=== PATIENT | female | born 1970 | race Two or more races ===

== ENCOUNTER 2017-10-23 15:14 | Inpatient (IN) | payer MEDICAID ==
[~2017-10-23] VITALS: Ht 170.2 cm; Wt 160.2 kg
[~2017-10-23 15:14] MED LIST: ASPI81CH43 PO; BENA20TA PO; CLOP75TA41 PO; FURO40TA4 PO; LISI-646 PO; MET25T PO; POT20T PO; SITA100T7 PO
[2017-10-23 16:54] LABS: Alanine Aminotransferase 27 U/L (13-56); Anion Gap 5 (5-15); Aspartate Aminotransferase 19 U/L (15-37); BUN/Creatinine Ratio 19.7; Blood Urea Nitrogen 13 mg/dL (7-18); Calcium 8.8 mg/dL (8.5-10.1); Carbon Dioxide 29 mmol/L (21-32); Chloride 107 mmol/L (98-107); GFR African American 123 mL/min; GFR Non-African American 102 mL/min; Glucose 140 mg/dL (74-106); Magnesium 2.2 mg/dL (1.6-2.6); Potassium 3.7 mmol/L (3.5-5.1); Sodium 141 mmol/L (136-145)
[2017-10-23 16:57] LABS: Basophils # (auto) 0 uL; Basophils % (auto) 0.3 % (0.0-2.0); Eosinophils # (auto) 0.1 uL; Hematocrit 41.9 % (36.0-46.0); Hemoglobin 13.7 g/dL (12.2-16.2); Lymphocytes # (auto) 1.7 uL; Lymphocytes % (auto) 27.7 % (10.0-50.0); Mean Corpuscular Hemoglobin 28.3 pg (28.0-32.0); Mean Corpuscular Hgb Conc. 32.6 g/dL (32.0-36.0); Mean Corpuscular Volume 86.8 fL (80.0-100.0); Monocytes # (auto) 0.5 uL; Monocytes % (auto) 7.4 % (0.0-12.0); Neutrophils # (auto) 3.9 uL; Neutrophils % (auto) 63.6 % (37.0-80.0); Nucleated Red Blood Cells % 0.1 %; Platelet Count (auto) 222 10^3/uL (140-450); Red Blood Cells 4.83 10^6/uL (4.0-5.20); Red Cell Distribution Width 16.6 % (11.8-14.3); White Blood Cell 6.2 10^3/uL (4.4-10.8)
[2017-10-23 16:59] LABS: Alkaline Phosphatase 82 U/L (45-117); Bilirubin, Total 0.3 mg/dL (0.2-1.0); Total Protein 7.5 g/dL (6.4-8.2)
[2017-10-23 22:12] LABS: Urine Bacteria NONE SEEN /hpf (None Seen); Urine Blood Negative /uL (Negative); Urine WBC 1 /hpf (0 - 5)
[2017-10-23] MEDS ORDERED: ONDANSETRON HCL 4 MG/2 ML VIAL IV ONE (23:45)
[2017-10-23] MEDS ORDERED: MORPHINE SULFATE 4 MG/ML SYR/VIAL IV ONE (23:45)
[2017-10-24] MEDS ORDERED: DEXTROSE (50%) 50ML SYRG IV PRN (02:45)
[2017-10-24] MEDS ORDERED: ONDANSETRON HCL 4 MG/2 ML VIAL IV PRN (02:45)
[2017-10-24] MEDS ORDERED: MORPHINE SULFATE 4 MG/ML SYR/VIAL IV PRN (02:45)
[2017-10-24] MEDS ORDERED: NITROGLYCERIN 0.4 MG SL TAB SL PRN (02:45)
[2017-10-24] MEDS ORDERED: TEMAZEPAM 15 MG CAP PO PRN (02:45)
[2017-10-24] MEDS: InsuLIN REG 1unit/0.01ml Soln (100units/ml) SC SCH ×4 (06:02→22:25)
[2017-10-24] MEDS: ACCU-CHEK COMFORT CURVE STRIP VI SCH ×4 (06:03→21:42)
[2017-10-24] MEDS ORDERED: ACETAMINOPHEN 325 MG TAB PO ONE (08:15)
[2017-10-24] MEDS ORDERED: LISINOPRIL 10 MG TAB PO SCH (10:00)
[2017-10-24] MEDS ORDERED: ENOXAPARIN SOD 40 MG/0.4 ML SYRINGE SC SCH (10:00)
[2017-10-24] MEDS ORDERED: BENAZEPRIL HCL 10 MG TAB PO SCH (10:00)
[2017-10-24] MEDS ORDERED: ASPirin 81 mg TAB PO SCH (10:00)
[2017-10-24] MEDS ORDERED: FUROSEMIDE 40 MG TAB PO SCH (10:00)
[2017-10-24 10:01] VITALS: BP 134/48
[2017-10-24] MEDS ORDERED: GLYB3TAB PO (10:16)
[2017-10-24] MEDS ORDERED: CANA300T OR (10:16)
[2017-10-24] MEDS ORDERED: SACU1TAB PO (10:16)
[2017-10-24] MEDS: CLOPIDOGREL BISULFATE 75 MG TAB PO SCH (10:36)
[2017-10-24] MEDS: METOPROLOL TARTRATE 25 MG TAB PO SCH ×2 (10:40→21:42)
[2017-10-24] MEDS ORDERED: OPTISON 3ml Vial for INJ IV ONE (11:16)
[2017-10-24 12:00] VITALS: BP 98/48
[2017-10-24] MEDS: HYDROcodone-ACET 5/325MG TAB PO PRN ×2 (12:15→20:00)
[2017-10-24] MEDS ORDERED: IOHEXOL 350 MG/ML 100ML IJ ONE (16:21)
[2017-10-24 16:53] LABS: Alcohol, Urine < 3.0 mg/dL (0-5); Amphetamine Screen, Urine NEGATIVE (NEGATIVE); Barbiturate Scree,Urine NEGATIVE (NEGATIVE); Benzodiazephine Screen, Urine NEGATIVE (NEGATIVE); Cannabinoid Screen, Urine NEGATIVE (NEGATIVE); Cocaine Screen, Urine NEGATIVE (NEGATIVE); Opiate Scree,Urine NEGATIVE (NEGATIVE); Phencyclidine Screen, Urine NEGATIVE (NEGATIVE)
[2017-10-24 17:00] VITALS: BP 106/59
[2017-10-24] MEDS: PANTOPRAZOLE 40 MG TAB PO SCH (21:39)
[2017-10-24 22:00] VITALS: BP 99/48
[2017-10-24] MEDS ORDERED: ATORVASTATIN 20 MG TAB PO SCH (22:00)
[2017-10-24] MEDS ORDERED: cefTRIAXone 1GM/10ml IVPUSH 10 ML IV ONE (22:00)
[2017-10-24] MEDS ORDERED: SODIUM CHLORIDE 0.9% 500 ML IV ONE (22:00)
[2017-10-24] MEDS: ACETAMINOPHEN 325 MG TAB PO PRN (22:26)
[2017-10-24 22:44] LABS: Basophils # (auto) 0 uL; Basophils % (auto) 0.2 % (0.0-2.0); Eosinophils # (auto) 0 uL; Hematocrit 39.4 % (36.0-46.0); Hemoglobin 12.7 g/dL (12.2-16.2); Lymphocytes # (auto) 0.7 uL; Lymphocytes % (auto) 8.5 % (10.0-50.0); Mean Corpuscular Hgb Conc. 32.4 g/dL (32.0-36.0); Mean Corpuscular Volume 86.5 fL (80.0-100.0); Monocytes # (auto) 0.7 uL; Monocytes % (auto) 7.5 % (0.0-12.0); Neutrophils # (auto) 7.4 uL; Neutrophils % (auto) 83.8 % (37.0-80.0); Platelet Count (auto) 194 10^3/uL (140-450); Red Blood Cells 4.55 10^6/uL (4.0-5.20); White Blood Cell 8.8 10^3/uL (4.4-10.8)
[2017-10-24 23:04] LABS: Albumin 3.6 g/dL (3.4-5.0); BUN/Creatinine Ratio 18.8; Calcium 8.5 mg/dL (8.5-10.1); Potassium 3.5 mmol/L (3.5-5.1)
[2017-10-24 23:06] LABS: Bilirubin, Total 1.2 mg/dL (0.2-1.0); Total Protein 7.1 g/dL (6.4-8.2)
[2017-10-25] VITALS (11 sets, daily range): BP systolic 90–133; BP diastolic 45–80
[2017-10-25] MEDS: InsuLIN REG 1unit/0.01ml Soln (100units/ml) SC SCH ×4 (05:31→23:31)
[2017-10-25] MEDS: ACETAMINOPHEN 325 MG TAB PO PRN ×2 (05:31→20:58)
[2017-10-25] MEDS: ACCU-CHEK COMFORT CURVE STRIP VI SCH ×3 (05:31→17:35)
[2017-10-25] MEDS ORDERED: SODIUM CHLORIDE 0.9% 1,000 ML IV SCH (07:15)
[2017-10-25] MEDS ORDERED: metroNIDAZOLE 500MG/100ML 100 ML IV ONE ×2 (07:15→07:23)
[2017-10-25] MEDS ORDERED: SODIUM CHLORIDE 0.9% 500 ML IV ONE (07:45)
[2017-10-25 07:53] LABS: Cholesterol 110 mg/dL (< 200); HDL Cholesterol 48 mg/dL (40-59); LDL Cholesterol 57 mg/dL (< 100); Triglycerides 86 mg/dL (< 150)
[2017-10-25] MEDS ORDERED: cefTRIAXone 1GM/10ml IVPUSH 10 ML IV SCH (09:00)
[2017-10-25] MEDS: PANTOPRAZOLE 40 MG TAB PO SCH (09:28)
[2017-10-25] MEDS: CLOPIDOGREL BISULFATE 75 MG TAB PO SCH (09:28)
[2017-10-25] MEDS ORDERED: ASPirin 81 mg TAB PO SCH (10:00)
[2017-10-25] MEDS ORDERED: VANCOMYCIN PER PHARMACY 0 MG IV SCH (10:45)
[2017-10-25 11:55] LABS: Basophils # (auto) 0 uL; Basophils % (auto) 0.2 % (0.0-2.0); Eosinophils # (auto) 0 uL; Hematocrit 39.2 % (36.0-46.0); Hemoglobin 12.7 g/dL (12.2-16.2); Lymphocytes # (auto) 0.9 uL; Lymphocytes % (auto) 8.5 % (10.0-50.0); Mean Corpuscular Hemoglobin 28.1 pg (28.0-32.0); Mean Corpuscular Hgb Conc. 32.5 g/dL (32.0-36.0); Mean Corpuscular Volume 86.5 fL (80.0-100.0); Monocytes # (auto) 0.9 uL; Monocytes % (auto) 7.8 % (0.0-12.0); Neutrophils # (auto) 9.2 uL; Neutrophils % (auto) 83.5 % (37.0-80.0); Platelet Count (auto) 186 10^3/uL (140-450); Red Blood Cells 4.53 10^6/uL (4.0-5.20); Red Cell Distribution Width 17.1 % (11.8-14.3)
[2017-10-25] MEDS ORDERED: PIPERACILLIN-TAZOB 3.375GM 50 ML IV SCH (12:00)
[2017-10-25] MEDS: SOD CHL 0.9%/ KCL 20MEQ 1,000 ML IV SCH ×2 (12:17→21:15)
[2017-10-25 12:23] LABS: Albumin 3.5 g/dL (3.4-5.0); BUN/Creatinine Ratio 14.9; Calcium 8.4 mg/dL (8.5-10.1); Potassium 3.6 mmol/L (3.5-5.1)
[2017-10-25 12:26] LABS: Bilirubin, Total 1.2 mg/dL (0.2-1.0); Total Protein 7.1 g/dL (6.4-8.2)
[2017-10-25 12:49] LABS: INR 1.09 (0.9-1.15); Prothrombin Time 11.9 sec (9.37-12.3)
[2017-10-25] MEDS ORDERED: metroNIDAZOLE 500MG/100ML 100 ML IV SCH (14:00)
[2017-10-25] MEDS ORDERED: VANCOMYCIN 1GM/250ML 250 ML IV SCH (14:00)
[2017-10-25] MEDS ORDERED: MIDAZOLAM HCL 1MG/1ML-2 ML VIAL ONE (14:31)
[2017-10-25] MEDS ORDERED: fentaNYL CITRATE 100 MCG/2 ML VL ONE (14:31)
[2017-10-25] MEDS ORDERED: MORPHINE SULFATE 4 MG/ML SYR/VIAL ONE (15:14)
[2017-10-25] MEDS ORDERED: MORPHINE SULFATE 4 MG/ML SYR/VIAL IV ONE (16:12)
[2017-10-25] MEDS ORDERED: LIDOCAINE 2%HCL (LOCAL ANESTH.) INJ 20ML MDV ONE (16:12)
[2017-10-25] MEDS: PIPERACILLIN-TAZOB 3.375GM 50 ML IV SCH (20:57)
[2017-10-25] MEDS: PANTOPRAZOLE 40 MG/10 ML VIAL IV SCH (20:58)
[2017-10-25] MEDS: HYDROcodone-ACET 5/325MG TAB PO PRN (20:58)
[2017-10-26] MEDS: VANCOMYCIN 1GM/250ML 250 ML IV SCH ×3 (01:09→18:16)
[2017-10-26] MEDS: PIPERACILLIN-TAZOB 3.375GM 50 ML IV SCH ×4 (02:18→20:34)
[2017-10-26 05:23] VITALS: BP 103/46
[2017-10-26] MEDS: HYDROcodone-ACET 5/325MG TAB PO PRN ×4 (05:46→21:52)
[2017-10-26] MEDS: ACCU-CHEK COMFORT CURVE STRIP VI SCH ×5 (05:56→23:59)
[2017-10-26] MEDS: InsuLIN REG 1unit/0.01ml Soln (100units/ml) SC SCH ×3 (05:57→18:03)
[2017-10-26 06:05] LABS: Basophils # (auto) 0 uL; Eosinophils # (auto) 0 uL; Hematocrit 36.6 % (36.0-46.0); Hemoglobin 12.2 g/dL (12.2-16.2); Lymphocytes # (auto) 0.6 uL; Lymphocytes % (auto) 7.6 % (10.0-50.0); Mean Corpuscular Hemoglobin 28.8 pg (28.0-32.0); Mean Corpuscular Hgb Conc. 33.3 g/dL (32.0-36.0); Mean Corpuscular Volume 86.4 fL (80.0-100.0); Monocytes # (auto) 0.8 uL; Monocytes % (auto) 10.4 % (0.0-12.0); Neutrophils # (auto) 6.3 uL; Platelet Count (auto) 160 10^3/uL (140-450); Red Blood Cells 4.24 10^6/uL (4.0-5.20); Red Cell Distribution Width 17.7 % (11.8-14.3); White Blood Cell 7.7 10^3/uL (4.4-10.8)
[2017-10-26 06:21] LABS: Albumin 2.8 g/dL (3.4-5.0); BUN/Creatinine Ratio 14.5; Potassium 3.6 mmol/L (3.5-5.1); Total Protein 6.6 g/dL (6.4-8.2)
[2017-10-26 07:54] VITALS: BP 136/63
[2017-10-26] MEDS: SOD CHL 0.9%/ KCL 20MEQ 1,000 ML IV SCH ×2 (08:03→16:57)
[2017-10-26] MEDS: PANTOPRAZOLE 40 MG/10 ML VIAL IV SCH ×2 (10:04→21:52)
[2017-10-26] MEDS ORDERED: LIDOCAINE 1% HCL (LOCAL ANESTH.) INJ 20ML MDV ID ONE (11:45)
[2017-10-26] MEDS ORDERED: POTASSIUM CHL 20 Meq TABLET PO ONE (12:45)
[2017-10-26 13:02] VITALS: BP 125/69
[2017-10-26] MEDS: ACETAMINOPHEN 325 MG TAB PO PRN ×2 (14:04→20:28)
[2017-10-26 16:12] VITALS: BP 104/70
[2017-10-26] MEDS: SODIUM CHLOR 0.9% PF (SALINE LOCK) 10ML VIAL IV SCH (23:22)
[2017-10-27] MEDS: InsuLIN REG 1unit/0.01ml Soln (100units/ml) SC SCH ×4 (00:16→17:51)
[2017-10-27] MEDS: PIPERACILLIN-TAZOB 3.375GM 50 ML IV SCH ×2 (02:22→08:44)
[2017-10-27] MEDS: VANCOMYCIN 1GM/250ML 250 ML IV SCH ×2 (02:22→10:46)
[2017-10-27] MEDS: SOD CHL 0.9%/ KCL 20MEQ 1,000 ML IV SCH ×2 (02:23→21:54)
[2017-10-27] MEDS: ACETAMINOPHEN 325 MG TAB PO PRN ×2 (02:36→23:11)
[2017-10-27] MEDS: MORPHINE SULFATE 4 MG/ML SYR/VIAL IV PRN ×2 (04:08→10:20)
[2017-10-27] MEDS: ACCU-CHEK COMFORT CURVE STRIP VI SCH ×3 (06:10→17:54)
[2017-10-27 06:57] LABS: Basophils # (auto) 0 uL; Basophils % (auto) 0.1 % (0.0-2.0); Eosinophils # (auto) 0 uL; Eosinophils % (auto) 0.4 % (0.0-7.0); Hematocrit 33.4 % (36.0-46.0); Lymphocytes # (auto) 0.6 uL; Lymphocytes % (auto) 8.9 % (10.0-50.0); Mean Corpuscular Hemoglobin 28.6 pg (28.0-32.0); Mean Corpuscular Hgb Conc. 32.9 g/dL (32.0-36.0); Mean Corpuscular Volume 86.8 fL (80.0-100.0); Monocytes # (auto) 0.6 uL; Monocytes % (auto) 8.8 % (0.0-12.0); Neutrophils # (auto) 5.2 uL; Neutrophils % (auto) 81.8 % (37.0-80.0); Platelet Count (auto) 154 10^3/uL (140-450); Red Blood Cells 3.85 10^6/uL (4.0-5.20); Red Cell Distribution Width 17.4 % (11.8-14.3); White Blood Cell 6.3 10^3/uL (4.4-10.8)
[2017-10-27 07:21] LABS: Albumin 2.4 g/dL (3.4-5.0); BUN/Creatinine Ratio 15.8; Bilirubin, Total 0.9 mg/dL (0.2-1.0); Calcium 7.8 mg/dL (8.5-10.1); Potassium 3.7 mmol/L (3.5-5.1); Total Protein 6.2 g/dL (6.4-8.2)
[2017-10-27 09:00] VITALS: BP 131/57
[2017-10-27] MEDS: PANTOPRAZOLE 40 MG/10 ML VIAL IV SCH ×2 (10:46→21:53)
[2017-10-27] MEDS: SODIUM CHLOR 0.9% PF (SALINE LOCK) 10ML VIAL IV SCH ×2 (10:47→21:53)
[2017-10-27 13:00] VITALS: BP 130/78
[2017-10-27] MEDS ORDERED: LACTULOSE 20Gm/30ML SOLN PO PRN (13:45)
[2017-10-27] MEDS ORDERED: LACTULOSE 20Gm/30ML SOLN PO ONE (13:45)
[2017-10-27 16:55] VITALS: BP 139/70
[2017-10-27 22:00] VITALS: BP 153/81
[2017-10-28] MEDS: ACCU-CHEK COMFORT CURVE STRIP VI SCH ×4 (00:25→17:53)
[2017-10-28] MEDS: InsuLIN REG 1unit/0.01ml Soln (100units/ml) SC SCH ×4 (00:25→17:52)
[2017-10-28] MEDS: HYDROcodone-ACET 5/325MG TAB PO PRN ×2 (00:26→21:56)
[2017-10-28 05:44] VITALS: BP 159/76
[2017-10-28 07:41] LABS: Basophils # (auto) 0 uL; Basophils % (auto) 0.2 % (0.0-2.0); Eosinophils # (auto) 0.1 uL; Eosinophils % (auto) 1.2 % (0.0-7.0); Hematocrit 32.7 % (36.0-46.0); Hemoglobin 10.8 g/dL (12.2-16.2); Lymphocytes % (auto) 18.4 % (10.0-50.0); Mean Corpuscular Hemoglobin 28.4 pg (28.0-32.0); Mean Corpuscular Hgb Conc. 32.9 g/dL (32.0-36.0); Mean Corpuscular Volume 86.1 fL (80.0-100.0); Monocytes # (auto) 0.5 uL; Monocytes % (auto) 9.1 % (0.0-12.0); Neutrophils # (auto) 3.9 uL; Neutrophils % (auto) 71.1 % (37.0-80.0); Platelet Count (auto) 175 10^3/uL (140-450); Red Cell Distribution Width 17.8 % (11.8-14.3); White Blood Cell 5.5 10^3/uL (4.4-10.8)
[2017-10-28 07:59] LABS: Potassium 3.4 mmol/L (3.5-5.1)
[2017-10-28 08:00] VITALS: BP 166/85
[2017-10-28 08:04] LABS: Albumin 2.4 g/dL (3.4-5.0); BUN/Creatinine Ratio 10.2; Calcium 7.9 mg/dL (8.5-10.1)
[2017-10-28 08:19] LABS: Bilirubin, Total 0.5 mg/dL (0.2-1.0); Total Protein 6.2 g/dL (6.4-8.2)
[2017-10-28 08:37] VITALS: BP 166/85
[2017-10-28] MEDS ORDERED: POTASSIUM CHL 20 Meq TABLET PO ONE (09:30)
[2017-10-28] MEDS: SOD CHL 0.9%/ KCL 20MEQ 1,000 ML IV SCH (09:30)
[2017-10-28] MEDS ORDERED: FUROSEMIDE 40 MG/4 ML VIAL IV ONE (09:30)
[2017-10-28] MEDS: LEVOFLOXACIN 500MG 100 ML IV SCH (10:02)
[2017-10-28] MEDS: PANTOPRAZOLE 40 MG/10 ML VIAL IV SCH ×2 (10:02→21:57)
[2017-10-28] MEDS: METOPROLOL TARTRATE 25 MG TAB PO SCH ×2 (10:03→21:57)
[2017-10-28] MEDS: LISINOPRIL 10 MG TAB PO SCH (10:05)
[2017-10-28] MEDS: SODIUM CHLOR 0.9% PF (SALINE LOCK) 10ML VIAL IV SCH ×2 (10:10→21:57)
[2017-10-28] MEDS ORDERED: ASPirin-EC 81 mg tab PO ONE (11:45)
[2017-10-28] MEDS ORDERED: CLOPIDOGREL BISULFATE 75 MG TAB PO ONE (11:45)
[2017-10-28] MEDS ORDERED: LEVO-28 PO (12:37)
[2017-10-28 13:00] VITALS: BP 153/100
[2017-10-28 17:00] VITALS: BP 148/83
[2017-10-28 22:00] VITALS: BP 141/86
[2017-10-29] MEDS: ACCU-CHEK COMFORT CURVE STRIP VI SCH ×3 (00:29→12:18)
[2017-10-29] MEDS: InsuLIN REG 1unit/0.01ml Soln (100units/ml) SC SCH ×3 (00:29→12:17)
[2017-10-29] MEDS: SOD CHL 0.9%/ KCL 20MEQ 1,000 ML IV SCH (01:51)
[2017-10-29] MEDS: ACETAMINOPHEN 325 MG TAB PO PRN (04:54)
[2017-10-29 05:00] VITALS: BP 136/77
[2017-10-29 08:00] VITALS: BP 119/66
[2017-10-29 08:29] VITALS: BP 119/66
[2017-10-29] MEDS ORDERED: AMPICILLIN 500 MG CAP PO ONE (08:45)
[2017-10-29] MEDS ORDERED: AMPI500C8 PO (08:46)
[2017-10-29] MEDS: LISINOPRIL 10 MG TAB PO SCH (09:57)
[2017-10-29] MEDS: METOPROLOL TARTRATE 25 MG TAB PO SCH (09:59)
[2017-10-29] MEDS: PANTOPRAZOLE 40 MG/10 ML VIAL IV SCH (10:00)
[2017-10-29] MEDS ORDERED: CLOPIDOGREL BISULFATE 75 MG TAB PO SCH (10:00)
[2017-10-29] MEDS ORDERED: ASPirin-EC 81 mg tab PO SCH (10:00)
[2017-10-29] MEDS: LEVOFLOXACIN 500MG 100 ML IV SCH (10:01)
[2017-10-29] MEDS: SODIUM CHLOR 0.9% PF (SALINE LOCK) 10ML VIAL IV SCH (10:01)
[2017-10-29] MEDS ORDERED: AMPICILLIN 500 MG CAP PO SCH (12:00)
[2017-10-29 12:30] VITALS: BP 144/91
== END 2017-10-29 15:50 | disposition home or self-care (01) | DRG 710 ==
LOC: ER 15:16 → TELE 15:17 → TELE-WESTW 10-24 08:37 → WEST WING 10-27 11:53 → TELE-WESTW 10-27 23:19
PROVIDERS: ADMIT Nurse Practitioner; ATTEND Internal Medicine
PROC: 0F9430Z Drainage of Gallbladder with Drainage Device, Percutaneous Approach (ICD-10-PCS; principal; 2017-10-25)
PROC: 30233N1 Transfusion of Nonautologous Red Blood Cells into Peripheral Vein, Percutaneous Approach (ICD-10-PCS; 2017-10-25)
PROC: 02HV33Z Insertion of Infusion Device into Superior Vena Cava, Percutaneous Approach (ICD-10-PCS; 2017-10-26)
DX: A41.9 Sepsis, unspecified organism (principal); I50.21 Acute systolic (congestive) heart failure; Z68.43 Body mass index [BMI] 50.0-59.9, adult; I42.0 Dilated cardiomyopathy; K80.00 Calculus of gallbladder with acute cholecystitis without obstruction; E66.01 Morbid (severe) obesity due to excess calories; I11.0 Hypertensive heart disease with heart failure; I25.10 Atherosclerotic heart disease of native coronary artery without angina pectoris; E11.9 Type 2 diabetes mellitus without complications; E78.5 Hyperlipidemia, unspecified; I25.5 Ischemic cardiomyopathy; I25.2 Old myocardial infarction; Z80.49 Family history of malignant neoplasm of other genital organs; Z82.49 Family history of ischemic heart disease and other diseases of the circulatory system; Z83.3 Family history of diabetes mellitus; Z95.5 Presence of coronary angioplasty implant and graft
CPT/HCPCS: 10030; 36415; 36569; 71045; 71275; 74176; 75989; 76705; 78226; 80053; 80061; 80202; 80307; 81001; 82962; 83036; 83605; 83735; 83880; 84484; 84702; 85025; 85379; 85610; 86850; 86900; 86901; 87040; 87077; 87086; 87186; 87205; 93005; 93306; 93970; 96374; 96375; 97163; C1729; C9113; J1815; J1956; J2250; J2405; J2543; J3490; Q9956

== ENCOUNTER 2018-09-14 20:55 | Emergency (ER) | payer MEDICAID ==
[~2018-09-14] VITALS: Ht 165.1 cm; Wt 158.8 kg
[~2018-09-14 20:55] MED LIST changes: +AMPI500C8 PO; +CANA300T OR; +GLYB3TAB3 PO; +LEVO-28 PO; +SACU1TAB PO
[2018-09-14 21:54] LABS: Basophils # (auto) 0 uL; Basophils % (auto) 0.1 % (0.0-2.0); Eosinophils # (auto) 0 uL; Eosinophils % (auto) 0.5 % (0.0-7.0); Hematocrit 38.3 % (36.0-46.0); Hemoglobin 12.2 g/dL (12.2-16.2); Lymphocytes # (auto) 1.5 uL; Lymphocytes % (auto) 20.9 % (10.0-50.0); Mean Corpuscular Hemoglobin 27.1 pg (28.0-32.0); Mean Corpuscular Hgb Conc. 31.9 g/dL (32.0-36.0); Mean Corpuscular Volume 84.9 fL (80.0-100.0); Monocytes # (auto) 0.4 uL; Neutrophils % (auto) 72.5 % (37.0-80.0); Nucleated Red Blood Cells % 0.1 %; Platelet Count (auto) 219 10^3/uL (140-450); Red Blood Cells 4.51 10^6/uL (4.0-5.20); Red Cell Distribution Width 15.2 % (11.8-14.3)
[2018-09-14 22:06] LABS: Urine Bacteria NONE SEEN /hpf (None Seen); Urine Blood Negative /uL (Negative); Urine Specific Gravity 1.024 (1.001-1.035); Urine WBC 1 /hpf (0 - 5)
[2018-09-14 22:12] LABS: Alanine Aminotransferase 23 U/L (13-56); Albumin 3.8 g/dL (3.4-5.0); Amylase 68 U/L (25-115); Anion Gap 10 (5-15); Aspartate Aminotransferase 15 U/L (15-37); BUN/Creatinine Ratio 13.1; Blood Urea Nitrogen 8 mg/dL (7-18); Calcium 8.6 mg/dL (8.5-10.1); Carbon Dioxide 25 mmol/L (21-32); Chloride 105 mmol/L (98-107); GFR African American 135 mL/min; GFR Non-African American 111 mL/min; Glucose 213 mg/dL (74-106); Lipase 261 U/L (73-393); Magnesium 2.2 mg/dL (1.6-2.6); Potassium 3.9 mmol/L (3.5-5.1); Sodium 140 mmol/L (136-145)
[2018-09-14 22:17] LABS: Alkaline Phosphatase 81 U/L (45-117); Bilirubin, Total 0.3 mg/dL (0.2-1.0); INR 0.96 (0.9-1.15); Partial Thromboplastin Time 27.3 sec (23.78-33.04); Prothrombin Time 10.3 sec (9.27-12.13); Total Protein 7.4 g/dL (6.4-8.2)
[2018-09-14] MEDS ORDERED: DICYCLOMINE HCL 10 MG CAP PO ONE (23:45)
[2018-09-15 01:44] VITALS: BP 128/69
== END 2018-09-15 03:12 | disposition home or self-care (01) ==
LOC: ER 20:58
DX: K80.20 Calculus of gallbladder without cholecystitis without obstruction (principal); K57.10 Diverticulosis of small intestine without perforation or abscess without bleeding; E11.9 Type 2 diabetes mellitus without complications; E78.5 Hyperlipidemia, unspecified; I10 Essential (primary) hypertension; I25.2 Old myocardial infarction; E66.9 Obesity, unspecified; Z98.61 Coronary angioplasty status; Z68.43 Body mass index [BMI] 50.0-59.9, adult; Z79.2 Long term (current) use of antibiotics; Z79.82 Long term (current) use of aspirin; Z79.899 Other long term (current) drug therapy
CPT/HCPCS: 36415; 71046; 74176; 76705; 80053; 81001; 82150; 82962; 83690; 83735; 84484; 84702; 85025; 85610; 85730; 93005; 99284; J0500

== ENCOUNTER 2023-02-22 07:05 | Day surgery (SDC) | payer MEDICAID ==
[2023-02-22] VITALS (7 sets, daily range): BP systolic 108–128; BP diastolic 66–77
[~2023-02-22] VITALS: Ht 165.1 cm; Wt 144.7 kg
[~2023-02-22 07:05] MED LIST changes: -AMPI500C8 PO; -BENA20TA PO; -CANA300T OR; +CLOP75TA28 PO; -CLOP75TA41 PO; +DAPA1TAB4 PO; +GLIM4TAB42 PO; -GLYB3TAB3 PO; -LEVO-28 PO; -LISI-646 PO; -MET25T PO; +METO-6 PO; -SACU1TAB PO; +SACU1TAB4 PO; +SEMA2INJ3 SC; +SIMV40TA42 PO; +SPIR25TA8 PO
[2023-02-22] MEDS ORDERED: ANGIOMAX 250 MG VIAL IV ONE (09:09)
[2023-02-22] MEDS ORDERED: fentaNYL CITRATE 100 MCG/2 ML VL ONE (09:10)
[2023-02-22] MEDS ORDERED: SODIUM CHL 0.9% 0 ML ONE (09:10)
[2023-02-22] MEDS ORDERED: HEPARIN SODIUM (PORCINE) 5000 UNITS/ML 1ML VIAL ONE (09:10)
[2023-02-22] MEDS ORDERED: LIDOCAINE 2%HCL (LOCAL ANESTH.) INJ 20ML MDV ONE (09:10)
[2023-02-22] MEDS ORDERED: MIDAZOLAM HCL 2MG/2ML 2ml VIAL (1mg/ml) ONE (09:10)
[2023-02-22] MEDS ORDERED: IODIXANOL 320MG/ML 100ML BTL IV ONE (09:10)
[2023-02-22] MEDS ORDERED: VERAPAMIL 2.5MG/ML INJ 2ML VIAL IV ONE (09:10)
== END 2023-02-22 12:10 | disposition home or self-care (01) ==
LOC: CATH 07:05
PROVIDERS: ATTEND Internal Medicine Cardiovascular Disease
DX: I42.8 Other cardiomyopathies (principal); I11.0 Hypertensive heart disease with heart failure; I50.22 Chronic systolic (congestive) heart failure; E78.5 Hyperlipidemia, unspecified; E11.9 Type 2 diabetes mellitus without complications; E66.01 Morbid (severe) obesity due to excess calories; Z98.890 Other specified postprocedural states; Z79.899 Other long term (current) drug therapy; Z79.84 Long term (current) use of oral hypoglycemic drugs
CPT/HCPCS: 76942; 93458; C1725; C1894; J1644; J2250; J3010; Q9967; 99152